=== PATIENT | male | born 1965 | race Caucasian/White ===

== ENCOUNTER 2017-09-13 20:32 | Emergency (ER) | payer OTHER ==
[2017-09-13] MEDS ORDERED: DIPHENHYDRAMINE 50 MG/ML VIAL ONE (21:05)
[2017-09-13] MEDS ORDERED: FAMOTIDINE 20 MG/2 ML VIAL IV ONE (21:05)
[2017-09-13] MEDS ORDERED: METHYLPREDNISOLONE 125 MG INJ ONE (21:05)
[2017-09-13] MEDS ORDERED: NA CHLORIDE 0.9% 1,000 ML ONE (21:05)
--- NOTE | 2017-09-13 21:31 | EDPHYS ---
Physician Documentation [facility] Name: Tad Friedman Age: 51 yrs Sex: Male : 1965 Arrival Date: 09/13/2017 Time: 20:32 Bed 14 Private MD: David Ryder ED Physician Shaun Farley HPI: 09/13 20:37 This 51 yrs old Male presents to ER via Unassigned with complaints of Rash. kav 20:49 The patient's rash thought to be caused by an unknown cause. The rash is located on the kav back, buttocks, abdomen and pelvis. The rash can be described as macular, urticarial. Onset: The symptoms/episode began/occurred acutely, 2 hour(s) ago. Associated signs and symptoms: Pertinent positives: itching. Severity of symptoms: At their worst the symptoms were moderate just prior to arrival. Treatment given at home: Cetirizine po x 1 dose. The patient has experienced similar episodes in the past, multiple times. . Historical: - Allergies: 20:45 Codeine; tl2 20:45 hydromorphone HCl; tl2 20:45 Morphine; tl2 20:45 PENICILLINS; tl2 - Home Meds: 20:45 Bystolic 10 mg Oral tab 1 tab once daily [Active]; furosemide 40 mg Oral tab 1 tab once tl2 daily [Active]; losartan 100 mg Oral tab 1 tab once daily [Active]; Nexium Oral [Active]; testosterone 25 mg daily [Active]; - PMHx: 20:45 Hypertension; Kidney stones; tl2 - PSHx: 20:45 Cholecystectomy; Hernia repair; Knee surgery; tl2 - Immunization history:: Adult Immunizations up to date. - Social history:: Smoking status: Patient/guardian denies using tobacco. - Ebola Screening: : No symptoms or risks identified at this time. - Family history:: not pertinent. - Hospitalizations: : No recent hospitalization is reported. - History obtained from: . ROS: 20:49 Constitutional: Negative for fever, chills, and weight loss, Eyes: Negative for injury, kav pain, redness, and discharge, ENT: Negative for injury, pain, and discharge, Neck: Negative for injury, pain, and swelling, Cardiovascular: Negative for chest pain, palpitations, and edema, Respiratory: Negative for shortness of breath, cough, wheezing, and pleuritic chest pain, Abdomen/GI: Negative for abdominal pain, nausea, vomiting, diarrhea, and constipation, Back: Negative for injury and pain, : Negative for injury, bleeding, discharge, and swelling, MS/Extremity: Negative for injury and deformity, Neuro: Negative for headache, weakness, numbness, tingling, and seizure, Psych: Negative for depression, anxiety, suicide ideation, homicidal ideation, and hallucinations, Allergy/Immunology: Negative for hives, rash, and allergies, Endocrine: Negative for neck swelling, polydipsia, polyuria, polyphagia, and marked weight changes, Hematologic/Lymphatic: Negative for swollen nodes, abnormal bleeding, and unusual bruising. 20:49 Skin: Positive for rash. Exam: 20:49 Constitutional: This is a well developed, well nourished patient who is awake, alert, kav and in no acute distress. Head/Face: Normocephalic, atraumatic. Eyes: Pupils equal round and reactive to light, extra-ocular motions intact. Lids and lashes normal. Conjunctiva and sclera are non-icteric and not injected. Cornea within normal limits. Periorbital areas with no swelling, redness, or edema. ENT: Nares patent. No nasal discharge, no septal abnormalities noted. Tympanic membranes are normal and external auditory canals are clear. Oropharynx with no redness, swelling, or masses, exudates, or evidence of obstruction, uvula midline. Mucous membranes moist. Neck: Trachea midline, no thyromegaly or masses palpated, and no cervical lymphadenopathy. Supple, full range of motion without nuchal rigidity, or vertebral point tenderness. No Meningismus. Chest/axilla: Normal chest wall appearance and motion. Nontender with no deformity. No lesions are appreciated. Cardiovascular: Regular rate and rhythm with a normal S1 and S2. No gallops, murmurs, or rubs. Normal PMI, no JVD. No pulse deficits. Respiratory: Lungs have equal breath sounds bilaterally, clear to auscultation and percussion. No rales, rhonchi or wheezes noted. No increased work of breathing, no retractions or nasal flaring. Abdomen/GI: Soft, non-tender, with normal bowel sounds. No distension or tympany. No guarding or rebound. No evidence of tenderness throughout. Back: No spinal tenderness. No costovertebral tenderness. Full range of motion. MS/ Extremity: Pulses equal, no cyanosis. Neurovascular intact. Full, normal range of motion. Neuro: Awake and alert, GCS 15, oriented to person, place, time, and situation. Cranial nerves II-XII grossly intact. Motor strength 5/5 in all extremities. Sensory grossly intact. Cerebellar exam normal. Normal gait. Psych: Awake, alert, with orientation to person, place and time. Behavior, mood, and affect are within normal limits. 20:49 Skin: rash a moderate rash is noted, rash can be described as macular, urticarial, contact dermatitis, on the pelvis and abdomen and buttocks and back. Vital Signs: 20:45 BP 162 / 73; Pulse 62; Resp 18; Temp 98; Pulse Ox 97% on R/A; Weight 113.4 kg; Height 5 tl2 ft. 8 in. (172.72 cm); Pain 0/10; 20:45 Body Mass Index 38.01 (113.40 kg, 172.72 cm) tl2 MDM: 20:45 Medical screening is not applicable. [facility] 20:49 Data reviewed: vital signs, nurses notes. [facility] Administered Medications: 21:12 Drug: Benadryl 25 mg Route: IVP; Site: right antecubital; jd3 21:45 Follow up: Response: No adverse reaction jd3 21:12 Drug: Pepcid 20 mg Route: IVP; Site: right antecubital; jd3 21:45 Follow up: Response: No adverse reaction jd3 21:12 Drug: SOLU-Medrol 60 mg Route: IVP; Site: right antecubital; jd3 21:45 Follow up: Response: No adverse reaction jd3 21:13 Drug: NS 0.9% 1000 ml Route: IV; Rate: 1 bolus; Site: right antecubital; jd3 21:45 Follow up: Response: No adverse reaction; IV Status: Completed infusion; IV Intake: jd3 1000ml Disposition: 09/13/17 21:30 Discharged to Home. Impression: Allergic contact dermatitis, unspecified cause. - Condition is Stable. - Discharge Instructions: Contact Dermatitis, Rash, [id number], Allergies, [id number]. - Prescriptions for Medrol (Jordi) 4 mg Oral Tablets, Dose Pack - take 1 tablet by ORAL route as directed - follow package instructions; 1 packet. - Medication Reconciliation Form, Thank You Letter, Antibiotic Education, Prescription Opioid Use form. - Follow up: David Ryder; When: 2 - 3 days; Reason: If symptoms return, Recheck today's complaints, Continuance of care, Re-evaluation by your physician. - Problem is new. - Symptoms have improved. - Notes: Benadryl Over The Counter as directed and as needed Addendum: 09/18/2017 20:21 Co-signature as Attending Physician, Shaun Farley MD I agree with the assessment and w a plan of care. Signatures: Bessy Ng, HOUSE PARENT HOUSE PARENT Donna West RN RN tl2 Shaun Farley MD MD wa Davies, Jonathon, RN RN jd3 Corrections: (The following items were deleted from the chart) 09/13 21:45 21:30 09/13/2017 21:30 Discharged to Home. Impression: Allergic contact dermatitis, jd3 unspecified cause. Condition is Stable. Discharge Instructions: Contact Dermatitis, Rash, [id number], Allergies, Sywu-xx-[id number]. Forms are Medication Reconciliation Form, Thank You Letter, Antibiotic Education, Prescription Opioid Use. Follow up: David Ryder; When: 2 - 3 days; Reason: If symptoms return, Recheck today's complaints, Continuance of care, Re-evaluation by your physician. Problem is new. Symptoms have improved. kav
--- NOTE | 2017-09-13 21:31 | ER ---
Nurse's Notes [facility] Name: Tad Friedman Age: 51 yrs Sex: Male : 1965 Arrival Date: 09/13/2017 Time: 20:32 Bed 14 Private MD: David Ryder Diagnosis: Allergic contact dermatitis, unspecified cause Presentation: 09/13 20:43 Presenting complaint: Patient states: I started itching about an hour ago and I have tl2 this rash that started on my glute and now is going up my back. Urticaria noted. Pt denies SOB, no rash or swelling on face noted. Transition of care: patient was not received from another setting of care. Onset of symptoms was September 13, 2017 at 19:00. Risk Assessment: Do you want to hurt yourself or someone else? Patient reports no desire to harm self or others. Initial Sepsis Screen: Does the patient meet any 2 criteria? No. Patient's initial sepsis screen is negative. Does the patient have a suspected source of infection? No. Patient's initial sepsis screen is negative. Care prior to arrival: None. 20:43 Method Of Arrival: Ambulatory tl2 20:43 Acuity: ARCELIA 3 tl2 Triage Assessment: 20:45 General: Appears in no apparent distress. comfortable, Behavior is cooperative, tl2 appropriate for age, anxious. Pain: Denies pain. Derm: Rash noted that is itchy, urticaria. Historical: - Allergies: 20:45 Codeine; tl2 20:45 hydromorphone HCl; tl2 20:45 Morphine; tl2 20:45 PENICILLINS; tl2 - Home Meds: 20:45 Bystolic 10 mg Oral tab 1 tab once daily [Active]; furosemide 40 mg Oral tab 1 tab once tl2 daily [Active]; losartan 100 mg Oral tab 1 tab once daily [Active]; Nexium Oral [Active]; testosterone 25 mg daily [Active]; - PMHx: 20:45 Hypertension; Kidney stones; tl2 - PSHx: 20:45 Cholecystectomy; Hernia repair; Knee surgery; tl2 - Immunization history:: Adult Immunizations up to date. - Social history:: Smoking status: Patient/guardian denies using tobacco. - Ebola Screening: : No symptoms or risks identified at this time. - Family history:: not pertinent. - Hospitalizations: : No recent hospitalization is reported. - History obtained from: . Screenin:46 Abuse screen: Denies threats or abuse. Nutritional screening: No deficits noted. tl2 Tuberculosis screening: No symptoms or risk factors identified. Fall Risk None identified. Assessment: 20:45 General: Appears in no apparent distress. uncomfortable, Behavior is calm, cooperative, jd3 appropriate for age. Pain: Denies pain. Neuro: Level of Consciousness is awake, alert, obeys commands, Oriented to person, place, time, situation. Cardiovascular: Capillary refill < 3 seconds Patient's skin is warm and dry. Respiratory: Airway is patent Respiratory effort is even, unlabored, Respiratory pattern is regular, symmetrical, Breath sounds are clear bilaterally. Denies cough, shortness of breath. GI: No signs and/or symptoms were reported involving the gastrointestinal system. : No signs and/or symptoms were reported regarding the genitourinary system. EENT: No signs and/or symptoms were reported regarding the EENT system. Derm: Skin is intact, Skin is dry, Skin is normal, Skin temperature is warm Rash noted that is itchy, red, raised, on back, buttocks, right leg and left leg. Musculoskeletal: Circulation, motion, and sensation intact. Range of motion: intact in all extremities. 21:42 Reassessment: Patient appears in no apparent distress at this time. Patient and/or jd3 family updated on plan of care and expected duration. Pain level reassessed. Patient is alert, oriented x 3, equal unlabored respirations, skin warm/dry/pink. rash decreased in size, pt reported no itching. pt reported understanding of discharge instructions, even and steady gait upon discharge. Patient states feeling better. Vital Signs: 20:45 BP 162 / 73; Pulse 62; Resp 18; Temp 98; Pulse Ox 97% on R/A; Weight 113.4 kg; Height 5 tl2 ft. 8 in. (172.72 cm); Pain 0/10; 20:45 Body Mass Index 38.01 (113.40 kg, 172.72 cm) tl2 ED Course: 20:32 Patient arrived in ED. ds1 20:32 David Ryder MD is Private Physician. ds1 20:36 [facility]. kav 20:36 Shaun Farley MD is Attending Physician. kav 20:44 Triage completed. tl2 20:45 Arm band placed on right wrist. tl2 20:46 Patient has correct armband on for positive identification. tl2 20:54 Lisandro Kong, RN is Primary Nurse. jd3 21:00 Inserted saline lock: 20 gauge in right antecubital area, using aseptic technique. jd3 21:30 David Ryder MD is Referral Physician. kav 21:45 No provider procedures requiring assistance completed. IV discontinued, intact, jd3 bleeding controlled, No redness/swelling at site. Pressure dressing applied. Administered Medications: 21:12 Drug: Benadryl 25 mg Route: IVP; Site: right antecubital; jd3 21:45 Follow up: Response: No adverse reaction jd3 21:12 Drug: Pepcid 20 mg Route: IVP; Site: right antecubital; jd3 21:45 Follow up: Response: No adverse reaction jd3 21:12 Drug: SOLU-Medrol 60 mg Route: IVP; Site: right antecubital; jd3 21:45 Follow up: Response: No adverse reaction jd3 21:13 Drug: NS 0.9% 1000 ml Route: IV; Rate: 1 bolus; Site: right antecubital; jd3 21:45 Follow up: Response: No adverse reaction; IV Status: Completed infusion; IV Intake: jd3 1000ml Intake: 21:45 IV: 1000ml; Total: 1000ml. jd3 Outcome: 21:30 Discharge ordered by . kav 21:45 Discharged to home ambulatory, with family. jd3 21:45 Condition: stable 21:45 Discharge instructions given to patient, family, Instructed on discharge instructions, follow up and referral plans. medication usage, Demonstrated understanding of instructions, follow-up care, medications, Prescriptions given X 1. 21:45 Patient left the ED. jd3 Signatures: Bessy Ng, BRIQUETTE MAKER BRIQUETTE MAKER Katie Balbuena ds1 Donna Izaguirre RN RN tl2 Lisandro Kong, [place] RN jd3
[2017-09-13 21:53] VITALS: BP 162/73; TEMP 98; O2SAT 97
== END 2017-09-13 21:45 | disposition home or self-care (01) ==
LOC: ER 20:32
DX: L23.9 Allergic contact dermatitis, unspecified cause (principal); I10 Essential (primary) hypertension; Z88.6 Allergy status to analgesic agent; Z88.0 Allergy status to penicillin
CPT/HCPCS: 96361; 96374; 96375; 99283; J2930; J7030

== ENCOUNTER 2018-01-28 14:31 | Emergency (ER) | payer OTHER ==
[2018-01-28] MEDS ORDERED: ONDANSETRON 4 MG/2 ML VIAL ONE (15:37)
[2018-01-28] MEDS ORDERED: NA CHLORIDE 0.9% 1,000 ML ONE (15:37)
[2018-01-28] MEDS ORDERED: MEPERIDINE HCL 25 MG/0.5 ML ONE (15:37)
--- NOTE | 2018-01-28 15:54 | RAD REPORT ---
EXAM DESCRIPTION: CT - Stone Protocol - 01/28/2018 3:40 pm CLINICAL HISTORY: Abdominal pain, left groin pain radiating to the scrotum, history of kidney stones COMPARISON: CT imaging January 2017 TECHNIQUE: Axial 5 mm thick images were obtained without oral or IV contrast. The eevic-lh-oqrk span s the entirety of the system including uppermost abdomen and lung bases. All CT scans are performed using dose optimization technique as appropriate and may include automated exposure control or mA/KV adjustment according to patient size. FINDINGS: No hydronephrosis is present and no obstructing ureteral calculi. No suspicious renal mass es. Isodense masses and pyelonephritis are not excluded on a stone protocol CT scan. A 2 millimeter n onobstructing calyx calcification present lower pole left kidney. Punctate vascular calcifications ar e present. Urinary bladder is only partially filled which accentuates wall thickness. Prostate calcif ications are present. Prostate gland is not grossly enlarged or significantly different from the comp arison. Penile calcifications are present but probably not urethral in origin. Calcifications were al so seen in this location on the December 2015 study. Imaged portions of the liver, spleen and pancreas show no suspicious findings on non-contrast imaging . Cholecystectomy clips are present. No biliary tree dilatation. Liver shows a mild fatty infiltratio n pattern. No significant adrenal finding. No suspicious bowel findings. Left-sided diverticulosis is present without diverticulitis or other ac jack colon finding. No hernia, mass or bulky lymphadenopathy noted. No free air, free fluid or inflammatory stranding. No significant bony abnormality. 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 IMPRESSION: No hydronephrosis, obstructing calculus or acute finding identifiable. Patient has a punctate nonobstructing calcification lower pole calyx on the left. Isodense masses and pyelonephritis are not excluded on stone protocol technique. Left-sided diverticulosis without diverticulitis. No acute GI process.
[2018-01-28 16:13] LABS: Urine Bacteria 20-50 /HPF (NONE SEEN); Urine Culture Reflex Order NOT NEEDED; Urine Mucus 2+ /HPF (NONE SEEN); Urine RBC <5 /HPF (NONE SEEN)
[2018-01-28 16:13] LABS: Urine Blood NEGATIVE (NEG); Urine Glucose NEGATIVE (NEG); Urine Protein NEGATIVE (NEG); Urine Specific Gravity 1.025 (1.005-1.030); Urine pH 6.5 (5.0-7.0)
[2018-01-28 16:37] LABS: Absolute Lymphocytes (CBC) 2.2 K/uL (0.7-4.9); Absolute Monocytes 0.7 K/uL (0.1-1.3); Absolute Neutrophil 4.3 K/uL (1.8-8.0); Basophils % 0.5 % (0-1.3); Eosinophils % 1.8 % (0-4.4); Hematocrit 44.2 % (39.6-49.0); Lymphocytes % 30.2 % (15.3-44.8); MCV 88.7 fL (80-100); MPV 7.8 fL (7.6-11.3); Monocytes % 9.2 % (3.3-12.3); RBC Red Blood Cell Count 4.98 M/uL (4.33-5.43)
[2018-01-28 16:50] LABS: ALT/SGPT 43 U/L (12-78); AST/SGOT 15 U/L (15-37); Albumin 3.5 g/dL (3.4-5.0); Alkaline Phosphatase 56 U/L (45-117); BUN Blood Urea Nitrogen 17 mg/dL (7-18); Bicarbonate 25 mmol/L (21-32); Bilirubin Direct 0.3 mg/dL (0-0.2); Bilirubin Total 1.8 mg/dL (0.2-1.0); Glucose Level 121 mg/dL (74-106); Lipase 104 U/L (73-393); Protein, Total 6.9 g/dL (6.4-8.2); Sodium Level 141 mmol/L (136-145)
--- NOTE | 2018-01-28 17:26 | RAD REPORT ---
EXAM DESCRIPTION: US - Scrotum Testicles - 01/28/2018 5:16 pm CLINICAL HISTORY: pain left testicle COMPARISON: CYSTOGRAM dated 01/03/2011; Stone Protocol dated 01/28/2018 FINDINGS: The right testicle 4.5 x 2.8 x 2.5 cm. No intratesticular masses or evidence of testicular torsion. The left testicle 4.6 x 3.0 x 2.8 cm. No intratesticular masses or evidence of testicular torsion. The right epididymis appears normal. The left epididymis appears enlarged and demonstrates increased blood flow. Mild bilateral hydroceles. IMPRESSION: Left epididymitis is suspected.
--- NOTE | 2018-01-28 17:38 | ER ---
Nurse's Notes [facility] Name: Tad Friedman Age: 52 yrs Sex: Male : 1965 Arrival Date: 01/28/2018 Time: 14:34 Bed 17 Private MD: David Ryder Diagnosis: Epididymo-orchitis Presentation: 01/28 14:59 Presenting complaint: Patient states: around 2:30 am today, my L groin area started hj hurting and the pain moves to the testicle area; states hx of stone; denies N/V;. Transition of care: patient was not received from another setting of care. Onset of symptoms was January 28, 2018. Risk Assessment: Do you want to hurt yourself or someone else? Patient reports no desire to harm self or others. Initial Sepsis Screen: Does the patient meet any 2 criteria? No. Patient's initial sepsis screen is negative. Does the patient have a suspected source of infection? No. Patient's initial sepsis screen is negative. Care prior to arrival: None. 14:59 Method Of Arrival: Ambulatory 14:59 Acuity: ARCELIA 3 hj Triage Assessment: 15:02 General: Appears in no apparent distress. uncomfortable, Behavior is calm, cooperative, hj appropriate for age. Pain: Complains of pain in pelvis Pain currently is 8 out of 10 on a pain scale. Historical: - Allergies: 15:02 Codeine; hj 15:02 hydromorphone HCl; hj 15:02 Morphine; hj 15:02 PENICILLINS; hj - Home Meds: 15:02 Bystolic 10 mg Oral tab 1 tab once daily [Active]; furosemide 40 mg Oral tab 1 tab once hj daily [Active]; testosterone 25 mg daily [Active]; Nexium Oral [Active]; losartan 100 mg Oral tab 1 tab once daily [Active]; Lyrica Oral 150 mg daily [Active]; - PMHx: 15:02 Hypertension; Kidney stones; hj - PSHx: 15:02 Cholecystectomy; Hernia repair; Knee surgery; hj - Immunization history:: Adult Immunizations up to date. - Social history:: Smoking status: Patient/guardian denies using tobacco, Patient/guardian denies using alcohol. - Ebola Screening: : Patient negative for fever greater than or equal to 101.5 degrees Fahrenheit, and additional compatible Ebola Virus Disease symptoms Patient denies exposure to infectious person Patient denies travel to an Ebola-affected area in the 21 days before illness onset. - Family history:: not pertinent. - Hospitalizations: : No recent hospitalization is reported. - History obtained from: . Screenin:02 Abuse screen: Denies threats or abuse. Denies injuries from another. Nutritional hj screening: No deficits noted. Tuberculosis screening: No symptoms or risk factors identified. Fall Risk None identified. Assessment: 15:05 General: Appears in no apparent distress. Behavior is calm, cooperative, appropriate tw2 for age. Pain: Complains of pain in left inguinal area and left femoral area. Neuro: Level of Consciousness is awake, alert, obeys commands, Oriented to person, place, time, situation. Cardiovascular: Heart tones S1 S2 Capillary refill < 3 seconds Patient's skin is warm and dry. Respiratory: Airway is patent Respiratory effort is even, unlabored, Respiratory pattern is regular, symmetrical, Breath sounds are clear bilaterally. GI: Abdomen is round non-distended, obese, Bowel sounds present X 4 quads. : No signs and/or symptoms were reported regarding the genitourinary system. EENT: No signs and/or symptoms were reported regarding the EENT system. Derm: No signs and/or symptoms reported regarding the dermatologic system. Musculoskeletal: Range of motion: intact in all extremities. 16:09 Reassessment: Patient appears in no apparent distress at this time. No changes from tw2 previously documented assessment. Patient and/or family updated on plan of care and expected duration. Pain level reassessed. Patient is alert, oriented x 3, equal unlabored respirations, skin warm/dry/pink. 17:00 Reassessment: Patient appears in no apparent distress at this time. No changes from tw2 previously documented assessment. Patient and/or family updated on plan of care and expected duration. Pain level reassessed. Patient is alert, oriented x 3, equal unlabored respirations, skin warm/dry/pink. 17:55 Reassessment: Patient appears in no apparent distress at this time. No changes from tw2 previously documented assessment. Patient and/or family updated on plan of care and expected duration. Pain level reassessed. Patient is alert, oriented x 3, equal unlabored respirations, skin warm/dry/pink. Vital Signs: 15:03 BP 159 / 73; Pulse 72; Resp 18; Temp 98.1(TE); Pulse Ox 100% on R/A; Weight 120.2 kg; hj Height 5 ft. 8 in. (172.72 cm); Pain 6/10; 16:06 BP 124 / 55; Pulse 57; Resp 17; Pulse Ox 97% on R/A; Pain 3/10; tw2 16:59 BP 141 / 67; Pulse 59; Resp 17; Pulse Ox 97% on R/A; tw2 17:55 BP 148 / 79; Pulse 67; Resp 17; Pulse Ox 99% on R/A; Pain 3/10; tw2 15:03 Body Mass Index 40.29 (120.20 kg, 172.72 cm) hj ED Course: 14:34 Patient arrived in ED. sb2 14:34 David Ryder MD is Private Physician. sb2 15:01 Triage completed. hj 15:03 Arm band placed on left wrist. hj 15:03 Patient has correct armband on for positive identification. Placed in gown. Bed in low hj position. Call light in reach. Side rails up X 1. 15:16 Sadia Flaherty, RN is Primary Nurse. tw2 15:17 Bessy Ng, INJECTION MAINTENANCE TECHNICIAN is PHCP. kav 15:17 Yaya Yoder MD is Attending Physician. kav 15:30 Inserted saline lock: 20 gauge in right antecubital area, using aseptic technique. tw2 Blood collected. 15:31 Urine collected: clean catch specimen, cloudy. dh3 16:02 CT Stone Protocol In Process Unspecified. EDMS 16:06 Urine Microscopic Only Sent. tw2 17:16 Ultrasound completed. Note: done bedside in er. lc3 17:18 US Scrotum Testicles In Process Unspecified. EDMS 17:37 David Ryder MD is Referral Physician. kav 17:55 No provider procedures requiring assistance completed. IV discontinued, intact, tw2 bleeding controlled, No redness/swelling at site. Pressure dressing applied. Administered Medications: 15:33 Drug: Zofran 4 mg Route: IVP; Site: right antecubital; tw2 16:09 Follow up: Response: No adverse reaction tw2 15:35 Drug: NS 0.9% 1000 ml Route: IV; Rate: 1000 ml; Site: right antecubital; tw2 16:46 Follow up: Response: No adverse reaction; IV Status: Completed infusion; IV Intake: tw2 1000ml 15:35 Drug: Demerol 25 mg Route: IVP; Site: right antecubital; tw2 16:09 Follow up: Response: No adverse reaction; Pain is decreased tw2 Intake: 16:46 IV: 1000ml; Total: 1000ml. tw2 Outcome: 17:37 Discharge ordered by MD. doran 17:55 Discharged to home ambulatory, with significant other. tw2 17:55 Condition: stable 17:55 Discharge instructions given to patient, significant other, Instructed on discharge instructions, follow up and referral plans. medication usage, Demonstrated understanding of instructions, follow-up care, medications, Prescriptions given X 2. 17:56 Patient left the ED. tw2 Signatures: Dispatcher [employer] EDMS Bessy Ng, INJECTION MAINTENANCE TECHNICIAN INJECTION MAINTENANCE TECHNICIAN Mohan Cifuetnes, RN RN Tatiana Jones Tara, RN RN tw2 Monica Rodriguez 3 Libby Islas sb2 Corrections: (The following items were deleted from the chart) 15:05 15:03 Pulse 72bpm; Resp 18bpm; Pulse Ox 100% RA; Temp 98.1F Temporal; 120.2 kg; Height 5 ft. 8 in.; BMI: 40.2; Pain 6/10; hj 16:10 16:06 BP 124 / 55; Pulse 57bpm; Resp 17bpm; Pulse Ox 97% RA; tw2 tw2
--- NOTE | 2018-01-28 17:38 | EDPHYS ---
Physician Documentation [facility] Name: Tad Friedman Age: 52 yrs Sex: Male : 1965 Arrival Date: 01/28/2018 Time: 14:34 Bed 17 Private MD: David Ryder ED Physician Yaya Yoder HPI: 01/28 15:20 This 52 yrs old Male presents to ER via Ambulatory with complaints of Flank kav Pain. 15:27 The patient complains of pain in the left low back and left mid back. The pain radiates kav to the left femoral area, left inguinal area and left iliac crest. Onset: The symptoms/episode began/occurred acutely, 1 day(s) ago. Modifying factors: The symptoms are alleviated by nothing. the symptoms are aggravated by change in position. Associated signs and symptoms: Pertinent positives: nausea, Pertinent negatives: fever, hematuria, nausea, vomiting. Severity of pain: At its worst the pain was a 8 / 10 in the emergency department the pain is unchanged. The patient has experienced similar episodes in the past, multiple times. The patient has not recently seen a physician. Historical: - Allergies: 15:02 Codeine; hj 15:02 hydromorphone HCl; hj 15:02 Morphine; hj 15:02 PENICILLINS; hj - Home Meds: 15:02 Bystolic 10 mg Oral tab 1 tab once daily [Active]; furosemide 40 mg Oral tab 1 tab once hj daily [Active]; testosterone 25 mg daily [Active]; Nexium Oral [Active]; losartan 100 mg Oral tab 1 tab once daily [Active]; Lyrica Oral 150 mg daily [Active]; - PMHx: 15:02 Hypertension; Kidney stones; hj - PSHx: 15:02 Cholecystectomy; Hernia repair; Knee surgery; hj - Immunization history:: Adult Immunizations up to date. - Social history:: Smoking status: Patient/guardian denies using tobacco, Patient/guardian denies using alcohol. - Ebola Screening: : Patient negative for fever greater than or equal to 101.5 degrees Fahrenheit, and additional compatible Ebola Virus Disease symptoms Patient denies exposure to infectious person Patient denies travel to an Ebola-affected area in the 21 days before illness onset. - Family history:: not pertinent. - Hospitalizations: : No recent hospitalization is reported. - History obtained from: . ROS: 15:28 Constitutional: Negative for fever, chills, and weight loss, Eyes: Negative for injury, kav pain, redness, and discharge, ENT: Negative for injury, pain, and discharge, Neck: Negative for injury, pain, and swelling, Cardiovascular: Negative for chest pain, palpitations, and edema, Respiratory: Negative for shortness of breath, cough, wheezing, and pleuritic chest pain, Back: Negative for injury and pain, MS/Extremity: Negative for injury and deformity, Skin: Negative for injury, rash, and discoloration, Neuro: Negative for headache, weakness, numbness, tingling, and seizure, Psych: Negative for depression, anxiety, suicide ideation, homicidal ideation, and hallucinations, Allergy/Immunology: Negative for hives, rash, and allergies, Endocrine: Negative for neck swelling, polydipsia, polyuria, polyphagia, and marked weight changes, Hematologic/Lymphatic: Negative for swollen nodes, abnormal bleeding, and unusual bruising. 15:28 Abdomen/GI: Positive for abdominal pain, nausea, Negative for vomiting. 15:28 : Positive for flank pain, of the left femoral area, left inguinal area and left iliac crest, Negative for difficulty urinating. Exam: 15:28 Constitutional: This is a well developed, well nourished patient who is awake, alert, kav and in no acute distress. Head/Face: Normocephalic, atraumatic. Eyes: Pupils equal round and reactive to light, extra-ocular motions intact. Lids and lashes normal. Conjunctiva and sclera are non-icteric and not injected. Cornea within normal limits. Periorbital areas with no swelling, redness, or edema. ENT: Nares patent. No nasal discharge, no septal abnormalities noted. Tympanic membranes are normal and external auditory canals are clear. Oropharynx with no redness, swelling, or masses, exudates, or evidence of obstruction, uvula midline. Mucous membranes moist. Neck: Trachea midline, no thyromegaly or masses palpated, and no cervical lymphadenopathy. Supple, full range of motion without nuchal rigidity, or vertebral point tenderness. No Meningismus. Chest/axilla: Normal chest wall appearance and motion. Nontender with no deformity. No lesions are appreciated. Cardiovascular: Regular rate and rhythm with a normal S1 and S2. No gallops, murmurs, or rubs. Normal PMI, no JVD. No pulse deficits. Respiratory: Lungs have equal breath sounds bilaterally, clear to auscultation and percussion. No rales, rhonchi or wheezes noted. No increased work of breathing, no retractions or nasal flaring. Back: No spinal tenderness. No costovertebral tenderness. Full range of motion. Skin: Warm, dry with normal turgor. Normal color with no rashes, no lesions, and no evidence of cellulitis. MS/ Extremity: Pulses equal, no cyanosis. Neurovascular intact. Full, normal range of motion. Neuro: Awake and alert, GCS 15, oriented to person, place, time, and situation. Cranial nerves II-XII grossly intact. Motor strength 5/5 in all extremities. Sensory grossly intact. Cerebellar exam normal. Normal gait. Psych: Awake, alert, with orientation to person, place and time. Behavior, mood, and affect are within normal limits. 15:28 Abdomen/GI: Inspection: abdomen appears normal, Bowel sounds: normal, in all quadrants. 15:28 : CVA tenderness, on the left. kav 17:45 : positive Phren's and positive Cremaster . ka Vital Signs: 15:03 BP 159 / 73; Pulse 72; Resp 18; Temp 98.1(TE); Pulse Ox 100% on R/A; Weight 120.2 kg; hj Height 5 ft. 8 in. (172.72 cm); Pain 6/10; 16:06 BP 124 / 55; Pulse 57; Resp 17; Pulse Ox 97% on R/A; Pain 3/10; tw2 16:59 BP 141 / 67; Pulse 59; Resp 17; Pulse Ox 97% on R/A; tw2 17:55 BP 148 / 79; Pulse 67; Resp 17; Pulse Ox 99% on R/A; Pain 3/10; tw2 15:03 Body Mass Index 40.29 (120.20 kg, 172.72 cm) MDM: 15:17 Medical screening is not applicable. kav 15:28 Data reviewed: vital signs, nurses notes. kav 17:13 Awaiting: Ultrasound results. kav 17:36 Differential diagnosis: nephrolithiasis, testicular torsion, epididymidis. Counseling: kav I had a detailed discussion with the patient and/or guardian regarding: the historical points, exam findings, and any diagnostic results supporting the discharge/admit diagnosis, lab results, radiology results. 01/28 15:26 Order name: Basic Metabolic Panel; Complete Time: 16:58 kav 01/28 15:26 Order name: CBC with Diff; Complete Time: 16:58 kav 01/28 15:26 Order name: Creatinine for Radiology; Complete Time: 16:20 kav 01/28 15:26 Order name: Hepatic Function; Complete Time: 16:58 kav 01/28 15:26 Order name: Lipase; Complete Time: 16:58 v 01/28 15:30 Order name: Urine Microscopic Only [facility] 01/28 15:26 Order name: CT Stone Protocol; Complete Time: 16:10 kav 01/28 16:12 Interpretation: Abnormal. [facility] 01/28 15:30 Order name: Urine Culture [facility] 01/28 15:31 Order name: Urine Dipstick--Ancillary (enter results); Complete Time: 16:19 eb 01/28 16:19 Interpretation: Abnormal: UESTR 2+. [facility] 01/28 16:02 Order name: Urine Microscopic Only; Complete Time: 16:20 EDMS 01/28 16:20 Interpretation: Abnormal: UWBC >50; UBACT 20-50. [facility] 01/28 16:19 Order name: US Scrotum Testicles; Complete Time: 17:35 kav 01/28 17:36 Interpretation: Abnormal. [facility] 01/28 15:26 Order name: IV Saline Lock; Complete Time: 16:06 kav 01/28 15:26 Order name: Labs collected and sent; Complete Time: 16:06 v 01/28 15:26 Order name: Urine Dipstick-Ancillary (obtain specimen); Complete Time: 15:31 kav Administered Medications: 15:33 Drug: Zofran 4 mg Route: IVP; Site: right antecubital; tw2 16:09 Follow up: Response: No adverse reaction tw2 15:35 Drug: NS 0.9% 1000 ml Route: IV; Rate: 1000 ml; Site: right antecubital; tw2 16:46 Follow up: Response: No adverse reaction; IV Status: Completed infusion; IV Intake: tw2 1000ml 15:35 Drug: Demerol 25 mg Route: IVP; Site: right antecubital; tw2 16:09 Follow up: Response: No adverse reaction; Pain is decreased tw2 Disposition: 18:09 Co-signature as Attending Physician, Yaya Yoder MD. rn Disposition: 01/28/18 17:37 Discharged to Home. Impression: Epididymo-orchitis. - Condition is Stable. - Discharge Instructions: Epididymitis, Orchitis. - Prescriptions for Ibuprofen 800 mg Oral Tablet - take 1 tablet by ORAL route every 12 hours As needed take with food; 20 tablet. Levaquin 500 mg Oral Tablet - take 1 tablet by ORAL route once daily for 3 days; 3 tablet. - Medication Reconciliation Form, Thank You Letter, Antibiotic Education, Prescription Opioid Use, Work release form form. - Follow up: David Ryder MD; When: 5 - 6 days; Reason: Recheck today's complaints, Continuance of care, Re-evaluation by your physician. - Problem is new. - Symptoms have improved. Signatures: Dispatcher [employer] EDPA Bessy Ng, SKIN FITTER SKIN FITTER Yaya Tse MD MD rn Joaquin, Henry, RN RN hj Wise, Tara, RN RN tw2 Corrections: (The following items were deleted from the chart) 16:20 16:20 UWBC >50; UBACT 20-50. andreea doran 17:56 17:37 01/28/2018 17:37 Discharged to Home. Impression: Epididymo-orchitis. Condition is tw2 Stable. Forms are Work release form, Medication Reconciliation Form, Thank You Letter, Antibiotic Education, Prescription Opioid Use. Follow up: David Ryder; When: 5 - 6 days; Reason: Recheck today's complaints, Continuance of care, Re-evaluation by your physician. Problem is new. Symptoms have improved. kav
[2018-01-28 18:08] VITALS: TEMP 98.1
[2018-01-28 18:12] VITALS: BP 148/79; O2SAT 99
== END 2018-01-28 17:56 | disposition home or self-care (01) ==
LOC: ER 14:31
DX: N45.3 Epididymo-orchitis (principal); I10 Essential (primary) hypertension; Z88.0 Allergy status to penicillin; Z88.5 Allergy status to narcotic agent
CPT/HCPCS: 36415; 74176; 76377; 76870; 80048; 80076; 81003; 81015; 83690; 85025; 87086; 87088; 96361; 96374; 96375; 99284; J2175; J2405; J7030

== ENCOUNTER 2018-02-02 06:48 | Emergency (ER) | payer OTHER ==
[2018-02-02] MEDS ORDERED: KETOROLAC 30 MG/ML INJ ONE (07:24)
[2018-02-02 07:39] LABS: Absolute Lymphocytes (CBC) 2.1 K/uL (0.7-4.9); Absolute Monocytes 0.4 K/uL (0.1-1.3); Absolute Neutrophil 2.7 K/uL (1.8-8.0); Basophils % 0.5 % (0-1.3); Eosinophils % 2.5 % (0-4.4); Hematocrit 44.5 % (39.6-49.0); Lymphocytes % 39.3 % (15.3-44.8); MCH 31.6 pg (27.0-35.0); MCV 89.3 fL (80-100); MPV 7.2 fL (7.6-11.3); Monocytes % 7.8 % (3.3-12.3); RBC Red Blood Cell Count 4.98 M/uL (4.33-5.43)
[2018-02-02 08:38] LABS: Urine Bacteria NONE SEEN /HPF (NONE SEEN); Urine Culture Reflex Order NOT NEEDED; Urine RBC <5 /HPF (NONE SEEN)
[2018-02-02 08:39] LABS: Urine Blood NEGATIVE (NEG); Urine Glucose NEGATIVE (NEG); Urine Protein NEGATIVE (NEG); Urine pH 5.5 (5.0-7.0)
[2018-02-02 08:49] LABS: ALT/SGPT 43 U/L (12-78); AST/SGOT 21 U/L (15-37); Albumin 3.5 g/dL (3.4-5.0); Alkaline Phosphatase 55 U/L (45-117); BUN Blood Urea Nitrogen 17 mg/dL (7-18); Bicarbonate 25 mmol/L (21-32); Bilirubin Direct 0.3 mg/dL (0-0.2); Bilirubin Total 1.4 mg/dL (0.2-1.0); Glucose Level 129 mg/dL (74-106); Lipase 128 U/L (73-393); Potassium 4.3 mmol/L (3.5-5.1); Sodium Level 140 mmol/L (136-145)
--- NOTE | 2018-02-02 09:09 | RAD REPORT ---
EXAM DESCRIPTION: US - Scrotum Testicles - 02/02/2018 8:24 am CLINICAL HISTORY: Left-sided testicular pain COMPARISON: None. FINDINGS: Each epididymis is normal size. Blood flow of the left epididymis is increased relative to the right. Doppler evaluation shows a blood flow pattern within each testicle, increased slightly on the left. No intratesticular mass lesion. Bilateral hydroceles are present. No hernia, varicocele or extratesticular mass. Right testicle is 4.5 x 2.3 x 3.1 cm. Left testicle is 4.8 x 2.5 x 3.0 cm. IMPRESSION: Increased blood flow in the left epididymis and left testicle relative to the right. Fin dings suggest a left-sided epididymal orchitis. Bilateral hydroceles.
--- NOTE | 2018-02-02 09:37 | ER ---
Nurse's Notes [facility] Name: Tad Friedman Age: 52 yrs Sex: Male : 1965 Arrival Date: 02/02/2018 Time: 06:49 Bed 20 Private MD: David Ryder Diagnosis: Epididymitis-Left Presentation: 02/02 07:00 Presenting complaint: Patient states: Patient states pain returning to left groin; Seen lp1 here previously for same complaint, finished antibiotics prescribed but states pain returned at 0500; Denies any fever, swelling. Transition of care: patient was not received from another setting of care. Onset of symptoms was February 02, 2018 at 05:00. Risk Assessment: Do you want to hurt yourself or someone else? Patient reports no desire to harm self or others. Initial Sepsis Screen: Does the patient meet any 2 criteria? No. Patient's initial sepsis screen is negative. Does the patient have a suspected source of infection? No. Patient's initial sepsis screen is negative. Care prior to arrival: None. 07:00 Method Of Arrival: Ambulatory lp1 07:00 Acuity: ARCELIA 3 lp1 Historical: - Allergies: 07:06 PENICILLINS; lp1 07:06 Morphine; lp1 07:06 hydromorphone HCl; lp1 07:06 Codeine; lp1 - Home Meds: 07:06 Bystolic 10 mg Oral tab 1 tab once daily [Active]; furosemide 40 mg Oral tab 1 tab once lp1 daily [Active]; losartan 100 mg Oral tab 1 tab once daily [Active]; Lyrica Oral 150 mg daily [Active]; Nexium Oral [Active]; testosterone 25 mg daily [Active]; - PMHx: 07:06 Hypertension; Kidney stones; lp1 - PSHx: 07:06 Cholecystectomy; Knee surgery; Stricture surgery; lp1 - Immunization history:: Adult Immunizations up to date. - Social history:: Smoking status: Patient/guardian denies using tobacco. - Ebola Screening: : No symptoms or risks identified at this time. Screenin:07 Abuse screen: Denies threats or abuse. Denies injuries from another. Nutritional lp1 screening: No deficits noted. Tuberculosis screening: No symptoms or risk factors identified. Fall Risk None identified. Assessment: 07:11 General: Appears in no apparent distress. uncomfortable, Behavior is calm, cooperative, em Denies fever, reports suprapubic pain that radiates into left testicle, symptoms started sunday. Pain: Complains of pain in suprapubic area Pain currently is 7 out of 10 on a pain scale. Quality of pain is described as sharp, shooting. Neuro: Level of Consciousness is awake, alert, obeys commands, Oriented to person, place, time, situation. Cardiovascular: Capillary refill < 3 seconds Patient's skin is warm and dry. Respiratory: Airway is patent Respiratory effort is even, unlabored, Respiratory pattern is regular, symmetrical, Breath sounds are clear bilaterally. GI: Abdomen is obese, Abd is soft X 4 quads Abdomen is tender to palpation in right lower quadrant and left lower quadrant Reports Patient currently denies nausea, vomiting. : Genitalia appear normal on penis on scrotum Last void was February 02, 2018. Reports pain in suprapubic area testicle, Denies burning with urination, inability to void. EENT: No signs and/or symptoms were reported regarding the EENT system. Derm: Skin is intact, is healthy with good turgor, Skin is pink, warm \T\ dry. Musculoskeletal: Range of motion: intact in all extremities. 07:15 General: The previous assessment is accurate. Call light remains within reach. . ss 08:00 Reassessment: Patient appears in no apparent distress at this time. Patient and/or em family updated on plan of care and expected duration. Pain level reassessed. Patient is alert, oriented x 3, equal unlabored respirations, skin warm/dry/pink. pending results, at bedside. 09:15 Reassessment: Patient appears in no apparent distress at this time. Patient and/or em family updated on plan of care and expected duration. Pain level reassessed. Patient is alert, oriented x 3, equal unlabored respirations, skin warm/dry/pink. Patient states feeling better. Patient states symptoms have improved. Vital Signs: 07:07 BP 178 / 72; Pulse 61; Resp 18; Temp 99.4(O); Pulse Ox 100% on R/A; Weight 120.2 kg; lp1 Height 5 ft. 8 in. (172.72 cm); Pain 7/10; 08:00 BP 155 / 51; Pulse 57; Resp 16; Pulse Ox 96% on R/A; Pain 3/10; em 09:15 BP 158 / 61; Pulse 59; Resp 16; Pulse Ox 99% on R/A; Pain 4/10; em 07:07 Body Mass Index 40.29 (120.20 kg, 172.72 cm) lp1 ED Course: 06:49 Patient arrived in ED. al2 06:50 aDvid Ryder MD is Private Physician. al2 07:01 Bladimir Streeter PA is PHCP. cp 07:01 Karon Haskins MD is Attending Physician. cp 07:05 Triage completed. lp1 07:07 Arm band placed on left wrist. lp1 07:08 Mars Escobar LVN is Primary Nurse. em 07:10 Patient has correct armband on for positive identification. Placed in gown. Bed in low em position. Call light in reach. Side rails up X2. 07:20 Initial lab(s) drawn, by me, sent to lab. Urine collected: clean catch specimen, clear. em Inserted saline lock: 20 gauge in right antecubital area, using aseptic technique. Blood collected. 08:21 Ultrasound completed. Patient tolerated well. sg3 08:24 US Scrotum Testicles In Process Unspecified. EDMS 09:36 Rj Chawla MD is Referral Physician. cp 09:49 No provider procedures requiring assistance completed. IV discontinued, intact, em bleeding controlled, No redness/swelling at site. Pressure dressing applied. Administered Medications: 07:26 Drug: NS 0.9% 1000 ml Route: IV; Rate: 1 bolus; Site: right antecubital; em 08:38 Follow up: IV Status: Completed infusion; IV Intake: 1000ml em 07:29 Drug: TORadol 30 mg Route: IVP; Site: right antecubital; ss 07:50 Follow up: Response: No adverse reaction; Pain is decreased em 09:47 Drug: UltRAM 50 mg Route: PO; em 09:49 Follow up: Response: Medication administered at discharge. em 09:48 Drug: Bactrim (160 mg-800 mg (DS) 1 tablet Route: PO; em 09:49 Follow up: Response: Medication administered at discharge. em Intake: 08:38 IV: 1000ml; Total: 1000ml. em Outcome: 09:36 Discharge ordered by . cp 09:49 Discharged to home ambulatory, with family. em 09:49 Condition: good 09:49 Discharge instructions given to patient, family, Instructed on discharge instructions, follow up and referral plans. no drinking with medication, no driving heavy equipment, medication usage, Demonstrated understanding of instructions, follow-up care, medications, Prescriptions given X 3. 09:51 Patient left the ED. em Signatures: Dispatcher [employer] EDMars Gregory, BENCH MANAGER BENCH MANAGER em Kasey Kessler RN RN ss Ksenia Givens RN RN lp1 Bladimir Streeter PA PA cp Godinez, Sarah 3 Mckayla Pang
--- NOTE | 2018-02-02 09:37 | EDPHYS ---
Physician Documentation [facility] Name: Tad Friedman Age: 52 yrs Sex: Male : 1965 Arrival Date: 02/02/2018 Time: 06:49 Bed 20 Private MD: David Ryder ED Physician Karon Haskins HPI: 02/02 07:15 This 52 yrs old Male presents to ER via Ambulatory with complaints of BLADDER cp AND GROIN PAIN. 07:15 The patient presents with scrotal pain, of the left side. cp 07:15 Onset: The symptoms/episode began/occurred last week, returned this morning. Associated cp signs and symptoms: Pertinent positives: abdominal pain, Pertinent negatives: fever. The patient has been recently seen at the [facility] Emergency Department, for similar complaints labs were performed, an ultrasound was performed, CT scan was performed. Historical: - Allergies: 07:06 PENICILLINS; lp1 07:06 Morphine; lp1 07:06 hydromorphone HCl; lp1 07:06 Codeine; lp1 - Home Meds: 07:06 Bystolic 10 mg Oral tab 1 tab once daily [Active]; furosemide 40 mg Oral tab 1 tab once lp1 daily [Active]; losartan 100 mg Oral tab 1 tab once daily [Active]; Lyrica Oral 150 mg daily [Active]; Nexium Oral [Active]; testosterone 25 mg daily [Active]; - PMHx: 07:06 Hypertension; Kidney stones; lp1 - PSHx: 07:06 Cholecystectomy; Knee surgery; Stricture surgery; lp1 - Immunization history:: Adult Immunizations up to date. - Social history:: Smoking status: Patient/guardian denies using tobacco. - Ebola Screening: : No symptoms or risks identified at this time. ROS: 07:30 Constitutional: Negative for body aches, chills, fever, poor PO intake. cp 07:30 Eyes: Negative for injury, pain, redness, and discharge. cp 07:30 ENT: Negative for drainage from ear(s), ear pain, sore throat, difficulty swallowing, difficulty handling secretions. 07:30 Cardiovascular: Negative for chest pain, edema, palpitations. 07:30 Respiratory: Negative for cough, shortness of breath, wheezing. 07:30 Abdomen/GI: Positive for abdominal pain, of the left lower quadrant, Negative for vomiting, diarrhea, constipation, anorexia, black/tarry stool, rectal bleeding. 07:30 Back: Negative for radiated pain. 07:30 : Positive for testicular pain Negative for urinary symptoms. 07:30 Skin: Negative for cellulitis, rash. 07:30 Neuro: Negative for altered mental status, headache, weakness. 07:30 All other systems are negative. Exam: 07:35 Constitutional: The patient appears in no acute distress, alert, awake, non-toxic, well cp developed, well nourished, obese. 07:35 Head/Face: Normocephalic, atraumatic. cp 07:35 Eyes: Periorbital structures: appear normal, Conjunctiva: normal, no exudate, no injection, Sclera: no appreciated abnormality, Lids and lashes: appear normal, bilaterally. 07:35 ENT: External ear(s): are unremarkable, Nose: is normal, Mouth: Lips: moist, Oral mucosa: pink and intact, moist, Posterior pharynx: is normal, airway is patent, no erythema, no exudate. 07:35 Chest/axilla: Inspection: normal, Palpation: is normal, no crepitus, no tenderness. 07:35 Cardiovascular: Rate: normal, Rhythm: regular. 07:35 Respiratory: the patient does not display signs of respiratory distress, Respirations: normal, no use of accessory muscles, no retractions, no splinting, no tachypnea, labored breathing, is not present, Breath sounds: are clear throughout, no decreased breath sounds, no stridor, no wheezing. 07:35 Abdomen/GI: Inspection: obese Bowel sounds: active, all quadrants, Palpation: soft, in all quadrants, mild abdominal tenderness, in the left lower quadrant, rebound tenderness, is not appreciated, voluntary guarding, is not appreciated, involuntary guarding, is not appreciated. 07:35 Back: pain, is absent, ROM is normal. 07:35 : Male external genitalia: tenderness, of the left testicle is noted, that is moderate, Sexual behavior: the patient is sexually active, and reports a single partner. 07:35 Skin: cellulitis, is not appreciated, no rash present. Vital Signs: 07:07 BP 178 / 72; Pulse 61; Resp 18; Temp 99.4(O); Pulse Ox 100% on R/A; Weight 120.2 kg; lp1 Height 5 ft. 8 in. (172.72 cm); Pain 7/10; 08:00 BP 155 / 51; Pulse 57; Resp 16; Pulse Ox 96% on R/A; Pain 3/10; em 09:15 BP 158 / 61; Pulse 59; Resp 16; Pulse Ox 99% on R/A; Pain 4/10; em 07:07 Body Mass Index 40.29 (120.20 kg, 172.72 cm) lp1 MDM: 07:08 Patient medically screened. cp 08:00 Differential diagnosis: nonspecific abdominal pain, UTI, prostatitis, urethritis. cp 09:15 Physician consultation: Rj Chawla MD was called at 09:15, left message on cp voicemail. 09:30 Physician consultation: Rj Chawla MD was contacted at 09:30, regarding patient's cp condition, outpatient follow-up, next week, and will see patient in office, next week, would like medications started, oral Bactrim or cephalosporin. 09:35 Data reviewed: vital signs, nurses notes, lab test result(s), radiologic studies, cp ultrasound. 09:35 Counseling: I had a detailed discussion with the patient and/or guardian regarding: the cp historical points, exam findings, and any diagnostic results supporting the discharge/admit diagnosis, lab results, radiology results, the need for outpatient follow up, a urologist. Response to treatment: the patient's symptoms have markedly improved after treatment, and as a result, I will discharge patient. 02/02 07:10 Order name: Basic Metabolic Panel; Complete Time: 08:51 cp 02/02 08:51 Interpretation: Normal except: CL 110; GLUC 129. cp 02/02 07:10 Order name: CBC with Diff; Complete Time: 07:41 cp 02/02 07:41 Interpretation: Normal except: WBC 5.5; PLT 243; MPV 7.2. cp 02/02 07:10 Order name: Creatinine for Radiology; Complete Time: 08:51 cp 02/02 07:10 Order name: Hepatic Function; Complete Time: 08:51 cp 02/02 08:51 Interpretation: Normal except: BILIT 1.4; BILID 0.3; A/G 1.0. cp 02/02 07:10 Order name: Lipase; Complete Time: 08:51 cp 02/02 07:10 Order name: Urine Microscopic Only; Complete Time: 08:40 cp 02/02 08:41 Interpretation: Normal except: SQEPI 10-20. cp 02/02 07:10 Order name: IV Saline Lock; Complete Time: 07:27 cp 02/02 07:10 Order name: Labs collected and sent; Complete Time: 07:27 cp 02/02 07:33 Order name: US Scrotum Testicles; Complete Time: 09:09 cp 02/02 07:46 Order name: Urine Dipstick--Ancillary (enter results); Complete Time: 08:40 lt1 02/02 07:10 Order name: Urine Dipstick-Ancillary (obtain specimen); Complete Time: 07:50 cp Administered Medications: 07:26 Drug: NS 0.9% 1000 ml Route: IV; Rate: 1 bolus; Site: right antecubital; em 08:38 Follow up: IV Status: Completed infusion; IV Intake: 1000ml em 07:29 Drug: TORadol 30 mg Route: IVP; Site: right antecubital; ss 07:50 Follow up: Response: No adverse reaction; Pain is decreased em 09:47 Drug: UltRAM 50 mg Route: PO; em 09:49 Follow up: Response: Medication administered at discharge. em 09:48 Drug: Bactrim (160 mg-800 mg (DS) 1 tablet Route: PO; em 09:49 Follow up: Response: Medication administered at discharge. em Disposition: 22:46 Co-signature as Attending Physician, Karon Haskins MD. ma2 Disposition: 02/02/18 09:36 Discharged to Home. Impression: Epididymitis - Left. - Condition is Stable. - Discharge Instructions: Epididymitis. - Prescriptions for Anaprox DS 550 mg Oral Tablet - take 1 tablet by ORAL route every 12 hours As needed; 20 tablet. Tramadol 50 mg Oral Tablet - take 1 tablet by ORAL route every 8 hours as needed; 20 tablet. Bactrim DS 800- 160 mg Oral Tablet - take 1 tablet by ORAL route every 12 hours for 10 days; 20 tablet. - Medication Reconciliation Form, Thank You Letter, Antibiotic Education, Prescription Opioid Use form. - Follow up: Rj Chawla MD; When: next week; Reason: Recheck today's complaints. - Problem is an ongoing problem. - Symptoms have improved. Signatures: Dispatcher Medst EDMars Gregory, ENTERPRISE CLOUD ARCHITECT ENTERPRISE CLOUD ARCHITECT em Kasey Kessler RN RN ss Ksenia Givens RN RN lp1 Bladimir Streeter PA PA cp Alzahri, Mohammad, MD MD ma2 Corrections: (The following items were deleted from the chart) 09:51 09:36 02/02/2018 09:36 Discharged to Home. Impression: Epididymitis - Left. Condition em is Stable. Forms are Medication Reconciliation Form, Thank You Letter, Antibiotic Education, Prescription Opioid Use. Follow up: Rj Chawla; When: next week; Reason: Recheck today's complaints. Problem is an ongoing problem. Symptoms have improved. cp
[2018-02-02] MEDS ORDERED: SMZ./TMP. 800/160 MG TABLET ONE (09:46)
[2018-02-02] MEDS ORDERED: TRAMADOL HCL 50 MG TAB ONE (09:47)
[2018-02-02 11:22] VITALS: BP 158/61; TEMP 99.4; O2SAT 99
== END 2018-02-02 09:51 | disposition home or self-care (01) ==
LOC: ER 06:48
DX: N45.1 Epididymitis (principal); I10 Essential (primary) hypertension; Z88.0 Allergy status to penicillin; Z88.5 Allergy status to narcotic agent
CPT/HCPCS: 36415; 76870; 80048; 80076; 81003; 81015; 83690; 85025; 96361; 96374; 99284

== ENCOUNTER 2020-01-05 04:54 | Emergency (ER) | payer OTHER ==
--- OUTSIDE RECORDS SUMMARY | 2020-01-05 04:56 | XMS REPORT | Continuity of Care Document ---
:1965 Author Organization [facility] t Address [address] [place] [address] [address] [place] [address] Care Team Providers Name Role Phone Doctor Unassigned, Name Attending Clinician Unavailable Problems This patient has no known problems. Allergies, Adverse Reactions, Alerts This patient has no known allergies or adverse reactions. Medications This patient has no known medications. Procedures This patient has no known procedures. Encounters Start End Encounter Admission Attending Care Care Encounter Source Date/Time Date/Time Type Type Clinicians Facility Department ID 2019-08-21 2019-08-21 Orders Doctor AMIE [id number] 00:00:00 00:00:00 Only UnassignedPIERRE [id number] [facility] [id number] Results This patient has no known results.
[2020-01-05] MEDS ORDERED: HYDROMORPHONE HCL 1 MG/ML INJ ONE (05:33)
[2020-01-05] MEDS ORDERED: ONDANSETRON 4 MG/2 ML VIAL ONE (05:33)
[2020-01-05] MEDS ORDERED: NA CHLORIDE 0.9% 1,000 ML ONE (05:34)
[2020-01-05 05:37] LABS: Absolute Lymphocytes (CBC) 1.5 K/uL (0.7-4.9); Basophils % 0.4 % (0-1.3); Hematocrit 44.9 % (39.6-49.0); MPV 7.8 fL (7.6-11.3); RBC Red Blood Cell Count 4.98 M/uL (4.33-5.43)
[2020-01-05 05:52] LABS: Albumin 4.1 g/dL (3.4-5.0); Bilirubin Direct 0.3 mg/dL (0-0.2); Bilirubin Total 2.5 mg/dL (0.2-1.0); Potassium 3.9 mmol/L (3.5-5.1); Protein, Total 7.5 g/dL (6.4-8.2)
--- NOTE | 2020-01-05 06:42 | EDPHYS ---
Physician Documentation [facility] Name: Tad Friedman Age: 54 yrs Sex: Male : 1965 Arrival Date: 01/05/2020 Time: 04:57 Bed 4 Private MD: ED Physician Serafin Zambrano HPI: 01/04 05:32 This 54 yrs old Male presents to ER via Ambulatory with complaints of mh7 Possible Kidney Stone. 05:32 The patient presents with abdominal pain in the left lower quadrant. Onset: The mh7 symptoms/episode began/occurred 2 day(s) ago. The symptoms do not radiate. Associated signs and symptoms: Pertinent negatives: nausea, vomiting, and diarrhea, nausea and vomiting, anorexia, blood in stools, chest pain, constipation, diarrhea, dysuria, fever, headache, hematuria, nausea, palpitations, shortness of breath, testicular pain, vomiting, vomiting blood. The symptoms are described as intermittent, vague, waxing/waning. Modifying factors: The symptoms are alleviated by nothing, the symptoms are aggravated by nothing. Severity of pain: At its worst the pain was moderate yesterday, in the emergency department the pain is unchanged. Historical: - Allergies: 05:14 Codeine; mg2 05:14 hydromorphone HCl; mg2 05:14 Morphine; mg2 05:14 PENICILLINS; mg2 - Home Meds: 05:14 furosemide 40 mg Oral tab 1 tab once daily [Active]; testosterone 25 mg daily [Active]; mg2 prebagalin [Active]; - PMHx: 05:14 Hypertension; Kidney stones; mg2 - PSHx: 05:14 knee sx; urethral sx; bile duct sx; mg2 - Immunization history:: Flu vaccine status is unknown. - Social history:: Smoking status: Patient denies any tobacco usage or history of. Patient/guardian denies using alcohol, street drugs, IV drugs. ROS: 05:32 Constitutional: Negative for fever, chills, and weight loss, Eyes: Negative for injury, mh7 pain, redness, and discharge, Neck: Negative for injury, pain, and swelling, Cardiovascular: Negative for chest pain, palpitations, and edema, Respiratory: Negative for shortness of breath, cough, wheezing, and pleuritic chest pain. 05:32 Back: Negative for injury and pain, : Negative for injury, bleeding, discharge, and swelling, MS/Extremity: Negative for injury and deformity, Skin: Negative for injury, rash, and discoloration, Neuro: Negative for headache, weakness, numbness, tingling, and seizure, Psych: Negative for depression, anxiety, suicide ideation, homicidal ideation, and hallucinations, Allergy/Immunology: Negative for hives, rash, and allergies, Endocrine: Negative for neck swelling, polydipsia, polyuria, polyphagia, and marked weight changes, Hematologic/Lymphatic: Negative for swollen nodes, abnormal bleeding, and unusual bruising. Exam: 05:32 Constitutional: This is a well developed, well nourished patient who is awake, alert, mh7 and in no acute distress. Head/Face: Normocephalic, atraumatic. Eyes: Pupils equal round and reactive to light, extra-ocular motions intact. Lids and lashes normal. Conjunctiva and sclera are non-icteric and not injected. Cornea within normal limits. Periorbital areas with no swelling, redness, or edema. Neck: Trachea midline, no thyromegaly or masses palpated, and no cervical lymphadenopathy. Supple, full range of motion without nuchal rigidity, or vertebral point tenderness. No Meningismus. Chest/axilla: Normal chest wall appearance and motion. Nontender with no deformity. No lesions are appreciated. Cardiovascular: Regular rate and rhythm with a normal S1 and S2. No gallops, murmurs, or rubs. Normal PMI, no JVD. No pulse deficits. Respiratory: Lungs have equal breath sounds bilaterally, clear to auscultation and percussion. No rales, rhonchi or wheezes noted. No increased work of breathing, no retractions or nasal flaring. 05:32 Back: No spinal tenderness. No costovertebral tenderness. Full range of motion. Skin: Warm, dry with normal turgor. Normal color with no rashes, no lesions, and no evidence of cellulitis. MS/ Extremity: Pulses equal, no cyanosis. Neurovascular intact. Full, normal range of motion. Neuro: Awake and alert, GCS 15, oriented to person, place, time, and situation. Cranial nerves II-XII grossly intact. Motor strength 5/5 in all extremities. Sensory grossly intact. Cerebellar exam normal. Normal gait. Psych: Awake, alert, with orientation to person, place and time. Behavior, mood, and affect are within normal limits. 05:32 Abdomen/GI: Inspection: abdomen appears normal, Bowel sounds: normal, Palpation: moderate abdominal tenderness, in the left lower quadrant, Rectal exam: the exam is deferred, because of patient request, Indicators: McBurney's point is not tender, Knowles's sign is negative, Rovsing's sign is negative, Obturator sign is negative, Psoas sign is negative, Liver: no appreciated palpable abnormalities, Hernia: not appreciated. Vital Signs: 05:09 BP 186 / 91; Pulse 76; Resp 18; Temp 98.1; Pulse Ox 100% on R/A; Weight 115.67 kg; mg2 Height 5 ft. 8 in. (172.72 cm); Pain 8/10; 05:29 BP 177 / 86; mg2 06:39 BP 143 / 60; Pulse 70; Resp 18; Pulse Ox 100% on R/A; Pain 4/10; mg2 05:09 Body Mass Index 38.77 (115.67 kg, 172.72 cm) mg2 MDM: 06:38 Differential diagnosis: bowel obstruction, diverticulitis, non-specific abd pain, mh7 Ureterolithiasis, urinary tract infection. Data reviewed: vital signs, nurses notes, old medical records, lab test result(s), CBC, electrolytes, urinalysis, radiologic studies, CT scan. Data interpreted: Pulse oximetry: on room air is 100 %. Interpretation: normal. Counseling: I had a detailed discussion with the patient and/or guardian regarding: the historical points, exam findings, and any diagnostic results supporting the discharge/admit diagnosis, the presence of at least one elevated blood pressure reading (>120/80) during this emergency department visit, lab results, radiology results, the need for outpatient follow up, a brokerage branch manager, to return to the emergency department if symptoms worsen or persist or if there are any questions or concerns that arise at home. Response to treatment: the patient's symptoms have markedly improved after treatment. 06:[address] [facility] 01/04 05:18 Order name: Basic Metabolic Panel; Complete Time: 06:20 [facility] 01/04 05:18 Order name: CBC with Diff; Complete Time: 06:20 [facility] 01/04 05:18 Order name: Hepatic Function; Complete Time: 06:20 [facility] 01/04 05:18 Order name: Lipase; Complete Time: 06:20 [facility] 01/04 05:20 Order name: CT Stone Protocol [facility] 01/04 06:35 Order name: Urine Dipstick--Ancillary (enter results) 3 01/04 05:18 Order name: IV Saline Lock; Complete Time: 05:24 [facility] 01/04 05:18 Order name: Labs collected and sent; Complete Time: 05:24 [facility] 01/04 05:18 Order name: Urine Dipstick-Ancillary (obtain specimen); Complete Time: 06:35 [facility] Administered Medications: 05:26 Drug: Zofran (Ondansetron) 4 mg Route: IVP; Site: right antecubital; mg2 06:34 Follow up: Response: No adverse reaction mg2 05:27 Drug: NS 0.9% 1000 ml Route: IV; Rate: 1000 ml; Site: right antecubital; mg2 06:34 Follow up: Response: No adverse reaction; IV Status: Completed infusion; IV Intake: mg2 1000ml 05:27 Drug: Dilaudid 1 mg Route: IVP; Site: right antecubital; mg2 06:34 Follow up: Response: No adverse reaction mg2 06:39 Drug: Flagyl 500 mg Route: PO; mg2 06:55 Follow up: Response: No adverse reaction mg2 06:39 Drug: Cipro 500 mg Route: PO; mg2 06:55 Follow up: Response: No adverse reaction mg2 Disposition: 01/05/20 06:41 Discharged to Home. Impression: Diverticulitis, UTI. - Condition is Stable. - Discharge Instructions: Diverticulitis, [id number], Urinary Tract Infection, Adult, [id number]. - Prescriptions for Flagyl 500 mg Oral Tablet - take 1 tablet by ORAL route every 8 hours for 7 days; 21 tablet. Cipro 500 mg Oral Tablet - take 1 tablet by ORAL route every 12 hours for 7 days; 14 tablet. Tramadol 50 mg Oral Tablet - take 1 tablet by ORAL route every 8 hours As needed as needed; 12 tablet. - Medication Reconciliation Form, Thank You Letter, Antibiotic Education, Prescription Opioid Use form. - Follow up: Private Physician; When: 1 - 2 days; Reason: Worsening of condition, Recheck today's complaints, Continuance of care, Re-evaluation by your physician. Follow up: Petey Acuña MD; When: 1 - 2 days; Reason: Worsening of condition, Recheck today's complaints. - Problem is new. - Symptoms have improved. Signatures: Dispatcher [employer] EDAxel Gilbert, RN RN mg2 Serafin Zambrano MD MD mh7 Corrections: (The following items were deleted from the chart) 06:58 06:41 01/05/2020 06:41 Discharged to Home. Impression: Diverticulitis; UTI. Condition mg2 is Stable. Forms are Medication Reconciliation Form, Thank You Letter, Antibiotic Education, Prescription Opioid Use. Follow up: Private Physician; When: 1 - 2 days; Reason: Worsening of condition, Recheck today's complaints, Continuance of care, Re-evaluation by your physician. Follow up: Petey Acuña; When: 1 - 2 days; Reason: Worsening of condition, Recheck today's complaints. Problem is new. Symptoms have improved. mh7
--- NOTE | 2020-01-05 06:42 | ER ---
Nurse's Notes [facility] Name: Tad Friedman Age: 54 yrs Sex: Male : 1965 Arrival Date: 01/05/2020 Time: 04:57 Bed 4 Private MD: Diagnosis: Diverticulitis;UTI Presentation: 01/04 05:09 Chief complaint: Patient states: i have several episodes of kidney stones before and mg2 usually it's on the right. but since sat night i have on and off left sided suprapubic pain. Coronavirus screen: Client denies travel out of the [place] in the last 14 days. At this time, the client does not indicate any symptoms associated with coronavirus-19. Ebola Screen: No symptoms or risks identified at this time. Initial Sepsis Screen: Does the patient meet any 2 criteria? No. Patient's initial sepsis screen is negative. Does the patient have a suspected source of infection? No. Patient's initial sepsis screen is negative. Risk Assessment: Do you want to hurt yourself or someone else? Patient reports no desire to harm self or others. Onset of symptoms was January 03, 2020. 05:09 Method Of Arrival: Ambulatory mg2 05:09 Acuity: ARCELIA 3 mg2 Triage Assessment: 05:28 General: Appears in no apparent distress. comfortable, Behavior is calm, cooperative. mg2 05:28 Pain: Complains of pain in abdomen Pain does not radiate. Pain currently is 8 out of 10 mg2 on a pain scale. Quality of pain is described as aching, Pain began gradually, 2-3 days ago. Is intermittent. EENT: No signs and/or symptoms were reported regarding the EENT system. Neuro: Level of Consciousness is awake, alert, obeys commands, Oriented to person, place, time, situation. Cardiovascular: Capillary refill < 3 seconds Patient's skin is warm and dry. Respiratory: Airway is patent Respiratory effort is even, unlabored, Respiratory pattern is regular, symmetrical. GI: Reports lower abdominal pain. : Reports pain in left in suprapubic area. Derm: Skin is intact, is healthy with good turgor, Skin is pink, warm \T\ dry. normal. Musculoskeletal: Circulation, motion, and sensation intact. Capillary refill < 3 seconds. Historical: - Allergies: 05:14 Codeine; mg2 05:14 hydromorphone HCl; mg2 05:14 Morphine; mg2 05:14 PENICILLINS; mg2 - Home Meds: 05:14 furosemide 40 mg Oral tab 1 tab once daily [Active]; testosterone 25 mg daily [Active]; mg2 prebagalin [Active]; - PMHx: 05:14 Hypertension; Kidney stones; mg2 - PSHx: 05:14 knee sx; urethral sx; bile duct sx; mg2 - Immunization history:: Flu vaccine status is unknown. - Social history:: Smoking status: Patient denies any tobacco usage or history of. Patient/guardian denies using alcohol, street drugs, IV drugs. Screenin:29 Abuse screen: Denies threats or abuse. Denies injuries from another. Nutritional mg2 screening: No deficits noted. Tuberculosis screening: No symptoms or risk factors identified. Fall Risk IV access (20 points). Assessment: 05:29 General: see triage note. mg2 05:29 GI: Bowel sounds present X 4 quads. Abd is soft. mg2 06:39 Reassessment: Patient appears in no apparent distress at this time. Patient and/or mg2 family updated on plan of care and expected duration. Pain level reassessed. Patient is alert, oriented x 3, equal unlabored respirations, skin warm/dry/pink. Patient states feeling better. Vital Signs: 05:09 BP 186 / 91; Pulse 76; Resp 18; Temp 98.1; Pulse Ox 100% on R/A; Weight 115.67 kg; mg2 Height 5 ft. 8 in. (172.72 cm); Pain 8/10; 05:29 BP 177 / 86; mg2 06:39 BP 143 / 60; Pulse 70; Resp 18; Pulse Ox 100% on R/A; Pain 4/10; mg2 05:09 Body Mass Index 38.77 (115.67 kg, 172.72 cm) mg2 ED Course: 04:57 Patient arrived in ED. bp1 05:07 Serafin Zambrano MD is Attending Physician. mh7 05:09 Axel Hernandez, [place] is Primary Nurse. mg2 05:12 Triage completed. mg2 05:15 Arm band placed on. mg2 05:15 Inserted saline lock: 20 gauge in right antecubital area, using aseptic technique. ds4 Blood collected. 05:29 Patient has correct armband on for positive identification. mg2 05:29 No provider procedures requiring assistance completed. mg2 05:54 CT Stone Protocol In Process Unspecified. EDMS 06:40 Petey Acuña MD is Referral Physician. 7 06:57 IV discontinued, intact, bleeding controlled, No redness/swelling at site. Pressure mg2 dressing applied. Administered Medications: 05:26 Drug: Zofran (Ondansetron) 4 mg Route: IVP; Site: right antecubital; mg2 06:34 Follow up: Response: No adverse reaction mg2 05:27 Drug: NS 0.9% 1000 ml Route: IV; Rate: 1000 ml; Site: right antecubital; mg2 06:34 Follow up: Response: No adverse reaction; IV Status: Completed infusion; IV Intake: mg2 1000ml 05:27 Drug: Dilaudid 1 mg Route: IVP; Site: right antecubital; mg2 06:34 Follow up: Response: No adverse reaction mg2 06:39 Drug: Flagyl 500 mg Route: PO; mg2 06:55 Follow up: Response: No adverse reaction mg2 06:39 Drug: Cipro 500 mg Route: PO; mg2 06:55 Follow up: Response: No adverse reaction mg2 Intake: 06:34 IV: 1000ml; Total: 1000ml. mg2 Outcome: 06:41 Discharge ordered by . mh7 06:57 Discharged to home ambulatory. mg2 06:57 Condition: stable 06:57 Discharge instructions given to patient, Instructed on discharge instructions, follow up and referral plans. medication usage, Demonstrated understanding of instructions, follow-up care, medications, Prescriptions given X 3. 06:58 Patient left the ED. mg2 Signatures: Dispatcher [employer] [facility] Zachariah Shankar ds4 Axel Hernandez RN RN mg2 Sarita Wilkes Maurice, MD MD 7 Corrections: (The following items were deleted from the chart) 05:29 05:28 General: Appears mg2 mg2
[2020-01-05] MEDS ORDERED: CIPROFLOXACIN HCL 500 MG TAB ONE (06:50)
[2020-01-05] MEDS ORDERED: metroNIDAZOLE 500 MG TABLET ONE (06:50)
[2020-01-05 07:31] VITALS: TEMP 98.1; O2SAT 100
[2020-01-05 07:34] VITALS: BP 143/60
[2020-01-05 08:43] LABS: Urine Blood NEGATIVE (NEG); Urine Glucose NEGATIVE (NEG); Urine Protein NEGATIVE (NEG); Urine Specific Gravity 1.025 (1.005-1.030); Urine pH 5.5 (5.0-7.0)
--- NOTE | 2020-01-05 10:53 | RAD REPORT ---
EXAM DESCRIPTION: CT - Stone Protocol - 01/05/2020 9:28 am CLINICAL HISTORY: Left abdominal pain. COMPARISON: None Available. TECHNIQUE: CT of the abdomen and pelvis without IV contrast. Evaluation of the solid organs and vasc ulature is suboptimal due to lack of IV contrast. FINDINGS: Lung Bases: The visualized lung bases are clear. Bones: Mild degenerative endplate spondylosis. Abdomen: Liver: The liver has normal size and decreased density. Stable intrahepatic biliary dilatation. Gallbladder: Prior cholecystectomy. Spleen, Pancreas, and Adrenal Glands: The spleen, pancreas, and adrenal glands are unremarkable. Kidneys: The kidneys have normal size without evidence of hydronephrosis. No obstructing ureteral sean culi. Vasculature: Aortoiliac atherosclerosis. IVC is unremarkable. Stomach: Small hiatal hernia. Other: No free intraperitoneal air. No free fluid or lymphadenopathy. Pelvis: Bladder: Urinary bladder is unremarkable. Bowel: Scattered diverticula of the colon. Mild pericolic inflammatory change of the distal descend ing colon. No well-circumscribed fluid collection. Mild nonspecific mesenteric edema. Appendix: Normal appendix. Pelvis: Prostate is not enlarged. IMPRESSION: 1. Findings compatible with acute uncomplicated diverticulitis of the distal descending colon. 2. Hepatic steatosis. This exam was performed according to our departmental dose-optimization program, which includes autom ated exposure control, adjustment of the mA and/or kV according to patient size and/or use of iterati ve reconstruction technique. Electronically signed by: Dutch Valenzuela 01/05/2020 6:02 AM MATH COACH Due to temporary technical issues with the PACS/Fluency reporting system, reports are being signed by the in house radiologist without review as a courtesy to ensure prompt reporting. The interpreting r adiologist is fully responsible for the content of the report.
== END 2020-01-05 06:58 | disposition home or self-care (01) ==
LOC: ER 04:54
DX: N39.0 Urinary tract infection, site not specified (principal); K57.32 Diverticulitis of large intestine without perforation or abscess without bleeding; I10 Essential (primary) hypertension; Z88.0 Allergy status to penicillin; Z88.5 Allergy status to narcotic agent; Z87.442 Personal history of urinary calculi
CPT/HCPCS: 85025; 80048; 36415; 80076; 81003; 83690; 76377; 74176; J1170; J7030; J2405; 96361; 96374; 96375; 99284